=== PATIENT | male | born 1975 | race Caucasian/White ===

== ENCOUNTER 2024-05-26 08:37 | Observation (INO) ==
--- NOTE | 2024-04-21 15:05 | PAT Medication Instructions ---
Medication Instructions Date of Service April 21, 2024 Home Medications lisinopril 10 mg tablet 10 mg PO QAM ibuprofen 400 mg tablet 400 mg PO QAM omeprazole 40 mg capsule,delayed release 40 mg PO DAILY Continue as directed omeprazole 40 mg capsule,delayed release 40 mg PO DAILY ASK your surgeon for instructions ibuprofen 400 mg tablet 400 mg PO QAM DO NOT take the morning of surgery lisinopril 10 mg tablet 10 mg PO QAM Other Notes NOTHING TO EAT OR DRINK AFTER MIDNIGHT. If you have any questions please call us at [phone] or [phone] or [phone] or [phone]
--- NOTE | 2024-04-27 08:14 | Anesthesiology Consultation ---
Date of Service April 27, 2024 Assessment & Plan (1) Encounter for pre-operative examination: Plan - PAT testing to be faxed to PCP (Dr. Resendiz) per patient request for continuity of care. - Outpatient joint assessment: Patient is currently scheduled for inpatient pathway. If re-evaluated and patient/surgeon requests outpatient pathway, patient is not advised candidate for outpatient joint program from anesthesia standpoint. Chart Review Chart Review: Acceptable Risk for Surgery and Patient seen in Pre Admission Testing Teaching & Discussion Pre-Anesthesia Teaching/Discussion Notes: Instructed NPO after midnight before surgery, except medications with 15 cc of water. Medication instructions provided according to the PAT guidelines. History Surgery Operation Date: 05/26/24 08:50 Proposed Procedures p Right Total Knee Arthroplasty - Levy Arroyo MD Height/Weight Height: 6 ft Weight: 158.2 kg Allergies Allergy/AdvReac Type Severity Reaction Status Date / Time No Known Allergies Allergy Verified 04/21/24 07:31 Medications Home Medications Medication Instructions Recorded Confirmed Last Taken lisinopril 10 mg tablet 10 mg PO QAM 08/19/19 04/21/24 Unknown ibuprofen 400 mg tablet 400 mg PO QAM 04/21/24 04/21/24 Unknown omeprazole 40 mg capsule,delayed 40 mg PO DAILY 04/21/24 04/21/24 Unknown release Past Medical History Medical History (Updated 04/27/24 @ 08:31 by Pamella Robert PA-C) Borderline hyperlipidemia no meds DJD (degenerative joint disease) of knee Fatty liver GERD (gastroesophageal reflux disease) controlled, stable per pt History of COVID-19 (2020) no hosp; resolved History of unintended awareness under general anesthesia patient notes that he was talking with provider before colonoscopy began after endoscopy and they advised him they needed to administer additional medication Hypertension controlled, stable per pt Knee pain, bilateral to receive cortisone injection in left knee on 05/11/24 Sleep apnea CPAP-compliant Patient denies h/o stroke, seizures, heart attack, heart failure, DM, blood clots/DVTs or blood transfusions. Exercise / Class Metabolic Activity II 4-5 Yardwork/Stairs/Walk up hill (denies chest discomfort or shortness of breath with one flight of stairs) Past Family History Family History Other No family history of adverse response to anesthesia Past Surgical History Surgical History History of esophagogastroduodenoscopy (EGD) Hx of arthroscopic knee surgery left Hx of colonoscopy Past Anesthesia History No Family Hx of Anesthesia Complications History of PONV No Hx of PONV and No Hx of Motion Sickness Social History Smoking Status: Former smoker Do You Dip or Chew Tobacco: No Smoking End Date: quit 2009 Hx Alcohol Use: Yes (once per month) alcohol intake frequency: other Hx Substance Use: No substance use type: does not use Review of Systems Patient denies chest pain, shortness of breath, dyspnea on exertion, fever, chills, cough, wheezing, or palpitations. Physical Exam Vital Signs Vitals BP 127/85 P 71 TEMP 98.0 SP02 97% on RA RESP 18 Physical Patient resting comfortably in chair in no acute distress, alert and oriented, responding appropriately throughout visit Full cervical extension range of motion without pain TMD 3.5 finger breadths Mallampati Score 3 Dentition: intact, denies chipped or loose teeth, caps/crowns, implants or bridges Lungs: normal respiratory effort. Good air movement, clear throughout to auscultation, no adventitious breath sounds Cardiac: regular rate and rhythm, no murmurs noted Carotid arteries: negative bruit bilat Lab Results Anesthesia Preop Results Results Anesthesia Widget: WBC 5.08 K/ul (4.8-10.8) 04/27/24 Hgb 15.0 g/dl (14.0-18.0) 04/27/24 Hct 43.6 % (42.0-52.0) 04/27/24 Plt 203 K/uL (130-400) 04/27/24 Na 139 mmol/L (136-145) 04/27/24 K 4.2 mmol/L (3.5-5.1) 04/27/24 Cl 104 mmol/L (98-107) 04/27/24 CO2 29 mmol/L (21-32) 04/27/24 BUN 11 mg/dl (6-23) 04/27/24 Creat 0.95 mg/dl (0.6-1.4) 04/27/24 Glucose Level 111 mg/dl (70-99(Fasting)) H 04/27/24 PT 11.2 Seconds (9.0-12.0) 04/27/24 PTT 27 Seconds (21-31) 04/27/24 INR 1.0 (0.9-1.1) 04/27/24 Blood Type A Positive 04/27/24 Antibody Screen NEGATIVE 04/27/24 Testing Electrocardiogram Date: 04/27/24 NSR, rate 66 bpm Chest X-Ray Date: 04/27/24 No evidence of acute cardiopulmonary disease, communicable disease or tuberculosis.
--- NOTE | 2024-05-19 11:47 | History & Physical Report ---
Date of Service May 19, 2024 Assessment & Plan (1) Right knee DJD: 48-year-old fairly large gentleman with multiple medical comorbidities with advanced bilateral knee DJD. The right side is more symptomatic than the left. Is failed conservative treatment. He would like to proceed with knee replacement. Plan: We are going to take him to the operating room and do a right total knee replacement. The risks and benefits of this procedure were explained. He knows that his young age this might need to be redone or revised in the future. Will likely put a stem in the tibia due to his large size. He is planning to be discharged to home with some home health. Will use aspirin for DVT prophylaxis. (2) Left knee DJD: (3) Hx of arthroscopy of knee: (4) High blood pressure: (5) Obesity: (6) Hypertension: (7) Borderline hyperlipidemia: (8) GERD (gastroesophageal reflux disease): History of Present Illness Chief Complaint: . Bilateral knee pain and discomfort right side greater than the left. Primary Care Provider: Harper Resendiz . Patient is a 48-year-old gentleman who referred by Dr. Dalton for treatment of his knees. Got a long history of knee problems dating back to many years ago. He had his left knee scope back in the s. He does not remember who did this. Over the years he developed increased pain and discomfort in both knees. The right much knee bothers him more than the left at this point. He has had injections which have become less successful over time. Pains become more debilitating. He has difficulty even walking it sometimes. He would like to proceed with knee replacement. Allergies Allergy/AdvReac Type Severity Reaction Status Date / Time No Known Allergies Allergy Verified 05/11/24 12:59 Home Medications Medication Instructions Recorded Confirmed Type lisinopril 10 mg tablet 10 mg PO QAM 08/19/19 05/11/24 History acetaminophen 500 mg oral powder 500 mg PO Q6H PRN 05/11/24 05/11/24 History packet (Tylenol Extra Strength) Past Med/Surg History Problem List (Updated 05/19/24 @ 11:45 by Levy Arroyo MD) Obesity Encounter for pre-operative examination Left knee DJD Right knee DJD Knee pain, bilateral Hx of arthroscopy of knee High blood pressure Medical History History of unintended awareness under general anesthesia patient notes that he was talking with provider before colonoscopy began after endoscopy and they advised him they needed to administer additional m edication Hypertension controlled, stable per pt DJD (degenerative joint disease) of knee Knee pain, bilateral to receive cortisone injection in left knee on 05/11/24 History of COVID-19 (2020) no hosp; resolved Fatty liver Borderline hyperlipidemia no meds Sleep apnea CPAP-compliant GERD (gastroesophageal reflux disease) controlled, stable per pt Surgical History History of esophagogastroduodenoscopy (EGD) Hx of colonoscopy Hx of arthroscopic knee surgery left Family History Other No family history of adverse response to anesthesia Social History Smoking Status: Former smoker Tobacco Type: Cigarettes Second Hand Exposure: No; Do You Dip or Chew Tobacco: No; Hx Alcohol Use: Yes (once per month) Hx Substance Use: No Preferred Language: Citizen Of [place] Communication Ability: Effective Sign Poster Required: No Beliefs That Will Affect Care: None Current Living Situation: Spouse Feels Safe at Home: Yes Assistive Devices: CPAP Review of Systems All systems reviewed & are unremarkable except as noted in HPI & below. Physical Exam . Physical examination reveals a fairly large middle-age male. Looks be in reasonably good health. Examination both knees reveals patient walks with a bit of a waddling gait. Examination of the right knee reveals varus alignment to his knee. Is got bony prophy. Range of motion is about 10 degrees short of full extension to about 100 to 105 degrees of flexion. Pretty stiff in flexion. No pain with hip motion. Examination left knee reveals fairly neutral slight varus alignment. Tenderness medially. Small knee effusion. Range of motion is 10-95. This knee is a little bit stiffer. No particular pain with hip motion. Constitutional WD/WN, vitals as above Neck trachea midline, no thyromegaly Respiratory normal respiratory effort, lungs clear to auscultation Cardiovascular RRR, no murmur, no edema Gastrointestinal (Abdomen) normal bowel sounds, soft, nontender, no hepatosplenomegaly Results & Data Results & Data Laboratory Results . Diagnostic Findings . X-rays of the right knee were reviewed. Shows advanced bilateral knee DJD. He is got severe advanced tricompartment disease. The left knee is actually little bit worse on x-ray than the right. Both knees show severe advanced tricompartment disease. PG Care Time/CCT Total # of Minutes Spent Total Time Spent with Patient: Total time spent is greater than 50% in coordination of care (as documented) at patient's floor/unit and/or counseling patient: Coding Level of Care Code None Diagnoses Right knee DJD M17.11 Left knee DJD M17.12 Hx of arthroscopy of knee Z98.890 High blood pressure I10 Obesity E66.9 Borderline hyperlipidemia E78.5 GERD (gastroesophageal reflux disease) K21.9
[~2024-05-26 08:37] MED LIST: LR 500ML BOLUS, THEN 15ML/HR IV SCH; LR 60ML/HR IV SCH; ROPIVACAINE 0.5% 5 MG/ML 30 ML VIAL ONE
[2024-05-26] MEDS: SODIUM CHLORIDE 0.9% 1,000 ML IV SCH (09:25)
[2024-05-26] MEDS: METOCLOPRAMIDE HCL 10 MG TABLET PO SCH (09:26)
[2024-05-26] MEDS: ACETAMINOPHEN 500 MG TAB PO SCH ×2 (09:26→15:59)
[2024-05-26] MEDS: FAMOTIDINE 20 MG TAB PO SCH (09:26)
[2024-05-26] MEDS: CeleBREX 200 MG CAP PO SCH (09:26)
[2024-05-26] MEDS ORDERED: PROPOFOL IV EMULSION 10 MG/ML 20 ML VIAL IV ONE ×3 (09:32→12:53)
[2024-05-26] MEDS ORDERED: LIDOCAINE 2% 2 ML VIAL/AMP(20MG/ML) INFIL ONE (09:32)
[2024-05-26] MEDS ORDERED: HYDROmorphone INJ 1 MG/ML SYRINGE IV PRN (09:41)
[2024-05-26] MEDS ORDERED: ePHEDrine sulfate 50 MG/ML AMP IV PRN (09:41)
[2024-05-26] MEDS ORDERED: ATROPINE SULFATE 0.1 MG/ML 10ML SYR IV PRN (09:41)
[2024-05-26] MEDS ORDERED: ONDANSETRON INJ 2 MG/ML 2 ML VIAL IV PRN ×2 (09:41→15:37)
[2024-05-26] MEDS ORDERED: fentaNYL citrate PF 100 MCG/2 ML VIAL IV PRN (09:41)
[2024-05-26] MEDS ORDERED: MIDAZOLAM HCL 1 MG/ML 2ML VIAL ONE (09:46)
[2024-05-26] MEDS ORDERED: KETAMINE HCL 10MG/ML SYR ONE (09:46)
[2024-05-26] MEDS ORDERED: fentaNYL citrate PF 100 MCG/2 ML VIAL ONE (09:46)
--- NOTE | 2024-05-26 10:37 | History & Physical Bridge Note ---
Date of Service May 26, 2024 History & Physical Bridge Note I have examined the patient, reviewed the History & Physical and in the interval since the performance of the History & Physical I have noted the following changes of clinical significance: no changes noted
[2024-05-26] MEDS: ceFAZolin 3000MG 3,000 MG/72.5 ML BAG IV SCH (11:03)
[2024-05-26] MEDS: ROPIV 0.5% 246mg, Ketorolac 30mg, EPINEPHrine 0.5mg in NSS INFIL SCH (11:33)
[2024-05-26] MEDS: ORTHO JOINT ANESTHETIC ONE (11:33)
[2024-05-26] MEDS: TRANEXAMIC ACID 1,000 MG **IV Intra-op IV SCH (12:17)
--- NOTE | 2024-05-26 13:13 | Operative Report ---
PG Post Operative Report Pre & Post Diagnosis Operation Date: 05/26/24 10:40 Pre-Op Diagnosis: Right Knee Degenerative Joint Disease Post-Op Diagnosis: Right Knee Degenerative Joint Disease I identified the patient and participated in the time-out.: Yes Procedure Operation Date: 05/26/24 10:40 Actual Procedures p Right Total Knee Arthroplasty(Right) - Levy Arroyo MD Surgeon Levy Arroyo MD Tax Preparer Aravind Morrow PA-C Estimated Blood Loss 100 Findings Consistent with Post-Op Diagnosis Operative findings were advanced right knee tricompartment DJD. He had asked pretty extensive grade 4 [id number] disease in all 3 compartments. Fairly large gentleman with a large soft tissue envelope. Very stiff knee. Specimens Right knee sent for pathology. Anesthesia Type Spinal MAC Complications none Disposition Accompanied Patient To Recovery: No Indications Patient is a 48-year-old very large gentleman whose had a several year history of increasing bilateral knee pain discomfort described to gotten worse over time. Is been through extensive conservative treatment which became less successful over time. X-rays show advanced bilateral knee DJD. The right knee was bothering more than the left and he elected proceed with right total knee arthroplasty. Description of Procedure Operative implants consist of: 1 Biomet Vanguard size 70 right posterior stabilized femoral component. 2. Biomet size 79 tibial tray with a 16 x 80 mm offset stem with a 5 mm offset and a small cruciate wing. 3. 10 mm post stabilized polyethylene insert. 4. 34 x 8 and half all poly patella. The patient was taken the operating, identified, placed on the operative table in the supine position. All contact areas were appropriately padded. IV antibiotics fibra anesthesia team. A spinal anesthetic and adductor canal block had been Weida in the holding area. A right side turn was then placed. The right lower extremity was then prepped and draped in usual sterile fashion. The right leg was elevated and exsanguinated with use of an Esmarch and the tourniquet was placed at 350 mmHg. An anterior approach to the right knee was then formed to longitudinal incision centered over the patella. Sharp dissection was Through subcutaneous tissue down the extensor mechanism. A medial parapatellar arthrotomy incision was made. Some subperiosteal dissection was carried out medially. The fat pad was dissected from Neath patella tendon. Lateral patellofemoral ligament was released. The patella was subluxated laterally and the knee was flexed. The osteophytes taken on distal femur. The ACL and PCL were then released from distal femur and the tibia subluxated anteriorly. Attention was then drawn to the tibia. The intercondylar eminence was resected with a saw. The IM canal was entered we reamed up to a size 16. The 16 reamer was left in place and the tibial cutting guide was placed on the IM reamer and used to cut the proximal tibia take 2 mm from the most efficient aspect medial tibial plateau. The tibia was then sized to a size 79. We then elected to use a 5 mm offset stem. The tibial tray was pinned in place and the proximal tibia was prepared for small cruciate wing and a 5 mm offset 16mm stem. Attention drawn the femur. The distal femur was entered with a sharp drill. Intramedullary canal was suction. A right 6 degree valgus cutting guide was placed per the distal femoral cutting block was pinned in place. This femoral cut was made to take an additional 3 mm of bone off distal femur. The femur was then sized to a size 70. The AP cutting block was pinned parallel to the epicondylar axis which was 4 degrees of external rotation. The anterior cut, anterior chamfer, posterior cut, posterior chamfer cuts were made. The box cutting guide was placed and just slight lateral box cut was made. The knee was flexed. The remnants of the medial and lateral menisci were excised. The osteophytes taken off the posterior aspect the femur. A trial femoral component was placed. We then trialed the knee and the 10 mm insert fit most appropriately. Attention drawn the patella. The patella is cleaned of all soft tissue. Patella thickness measured 25 mm and was cut down to 15. Was sized to a size 34 patella. The lug holes were drilled for 34 patella. The lateral osteophyte was removed. The patella button was p laced. Knee was taken through range of motion patella tracked nicely with no thumbs test. Attention was then drawn toward placing permanent components. Nupathe all trial components were removed. Bone plug was placed into this femur limit blood loss. Double batch Palacos G cement was mixed. A Biomet [employer] size 70 right posterior Byce femoral component, size 79 tibial tray with a 16 x 80 mm offset stem and a small cruciate wing was placed followed by a 10 mm posterior Byce polyethylene insert and a 34 x 8 and half all poly patella. The knee was brought out into full extension till cement hardened. A final cement check was then performed. The pericapsular tissues were injected with a total of 100 cc of Ortho mix. The patient did receive 1 g tranexamic acid. The tourniquet was then let down for final tourniquet time of 78 minutes. Hemostasis assured with electrocautery. Extensor Meclomen closed with combination 1 PDS suture #1 Vicryl suture in a [id number] fashion. Ex tensor Meclomen checked found to be intact. Subcutaneous tissues then closed with 2 Dexon suture in a buried interrupted fashion skin was closed skin chip. Leg was then cleaned and dried a sterile dressing with Xeroform, 4 fours, sterile cast padding, Celestine bandage were applied. The patient was then transferred to the recovery room in stable condition. The patient tolerated the procedure well and there were no complications. Aravind Morrow, my physician therapist's assistant, was present for the entire procedure. His assistance was essential and required for appropriate patient positioning, prepping and draping, surgical exposure, performing the technical details of the operation, placement the implants, closure of the wound, and placement of the sterile bandage. I attest to the content of the Intraoperative Record and any orders documented therein. Any exceptions are noted below.
--- NOTE | 2024-05-26 13:36 | Anesthesiology Progress Note ---
Date of Service May 26, 2024 Anesthesia Post Procedure Vital Signs Vital Signs: Temp Pulse Resp BP Pulse Ox O2 Del Method 05/26/24 13:25 71 16 148/82 H 95 Room Air 05/26/24 13:15 82 14 128/79 96 Room Air 05/26/24 13:07 36.3 C L 87 20 143/82 H 95 Room Air 05/26/24 09:01 37.1 C 79 20 146/93 H 96 Room Air Transfer of Care Handoff Completed per policy Notes Mental Status: alert / awake / arousable and participated in evaluation Patient Amnestic to Procedure: Yes Nausea / Vomiting: adequately controlled Pain: adequately controlled Airway Patency, RR, SpO2: stable & adequate BP & HR: stable & adequate Hydration State: stable & adequate Neuraxial Anesthesia: was administered and sensory block is resolving Anesthetic Complications: no major complications apparent and Pt Satisfied with anesthetic care
--- NOTE | 2024-05-26 13:49 | XRay Report ---
XR knee RT 1 or 2V routine HISTORY: 48 years-old Male Surgical Post Op COMPARISON: 02/10/2024 TECHNIQUE: 2 views of the right knee FINDINGS: Total joint arthroplasty with patellar resurfacing. Anterior midline skin chip with expected posto perative soft tissue swelling and deep tissue air. No acute fracture or unexpected opaque foreign bod y. IMPRESSION: Total joint arthroplasty with expected postoperative changes. ACT 112: Negative or not required by law. The above report was generated using voice recognition software. It may contain grammatical, syntax o r spelling errors. Electronically signed by: Keith Qureshi M.D. 05/26/2024 1:48 PM
[2024-05-26] MEDS ORDERED: diphenhydrAMINE Capsule 25 MG CAP PO PRN (15:37)
[2024-05-26] MEDS ORDERED: METOCLOPRAMIDE HCL INJ 5 MG/ML 2 ML VIAL IV PRN (15:37)
[2024-05-26] MEDS ORDERED: TAMSULOSIN HCL 0.4 MG CAP PO PRN (15:37)
[2024-05-26] MEDS ORDERED: MAGNESIUM HYDROXIDE SUSP 30 ML UDC PO PRN (15:37)
[2024-05-26] MEDS ORDERED: bisacodyL 10 MG SUPP PR PRN (15:37)
[2024-05-26] MEDS ORDERED: HYDROmorphone INJ 0.5 MG/0.5 ML SYR IV PRN (15:37)
[2024-05-26] MEDS ORDERED: ALUMINUM/MAGNESIUM SUSP 30 ML UDC PO PRN (15:37)
[2024-05-26] MEDS ORDERED: NALOXONE HCL 0.4 MG/1 ML VIAL/CARP IV PRN (15:37)
[2024-05-26] MEDS: LR 500ML BOLUS, THEN 15ML/HR IV SCH (15:56)
[2024-05-26] MEDS: KETOROLAC 30 MG/ML VIAL IV SCH (16:39)
[2024-05-26] MEDS: ASCORBIC ACID 500 MG TAB PO SCH (16:44)
[2024-05-26] MEDS: ceFAZolin 2000MG 2,000 MG/15 ML SYR IV SCH (19:15)
[2024-05-26] MEDS: TRANEXAMIC ACID / 0.7% NACL 1,000 MG/100 ML BAG IV SCH (19:20)
[2024-05-26] MEDS: DOCUSATE SODIUM 100 MG CAP PO SCH (20:04)
[2024-05-26] MEDS: ASPIRIN 81 MG ECTAB PO SCH (20:05)
[2024-05-26] MEDS: SENNA 8.6 MG TAB PO SCH (20:05)
[2024-05-26] MEDS ORDERED: SENNA 8.6 MG TAB PO SCH (21:00)
[2024-05-27] MEDS: oxyCODONE HCL IR 5 MG TAB (IMMEDIATE RELEASE) PO PRN (00:11)
[2024-05-27 06:20] LABS: Hematocrit (blood only) 38.5 % (42.0-52.0); Hemoglobin 12.7 g/dl (14.0-18.0); Mean Corpuscular Hemoglobin 27.5 pg (25.0-34.0); Mean Corpuscular Volume 83.5 fL (80.0-100.0); Mean Platelet Volume 10.3 fL (9.4-12.4); Platelet Count 198 K/uL (130-400); RDW Coefficient of Variation 13.1 % (11.5-14.5); RDW Standard Deviation 39.3 fL (36.4-46.3); Red Blood Count 4.61 M/uL (4.70-6.10); White Blood Count 11.31 K/ul (4.8-10.8)
[2024-05-27 06:51] LABS: BUN Creatinine Ratio 21.1 (10-20); Calcium 8.5 mg/dl (8.6-10.3); Creatinine Clr Calc Pharmacy 145.1 ml/min; Potassium 4.2 mmol/L (3.5-5.1)
--- NOTE | 2024-05-27 07:01 | Orthopedic Progress Note ---
Date of Service May 27, 2024 Assessment & Plan (1) Status post total right knee replacement: Pod 1 from right tka. Continue current pain control dvt prophylaxis: teds, scd's, aspirin PT/OT wbat d/c planning: home with home health today if therapy goes well. will discuss with Dr Cruz Ace .48 year old patient POD 1 from right tka. Doing fairly well. Had some moderate pain around midnight, relieved with pain medicine. No other complaints. Review of Systems All systems reviewed & are unremarkable except as noted in HPI & below. Physical Exam .alert and oriented. NAD VSS hgb 12.7 rigth leg: dressing clean, dry, and intact. Unable to do straight leg raise. Able to flex/extend knee. Able to DF/PF. NVI Results & Data Results & Data Laboratory Results . Diagnostic Findings . PG Care Time/CCT Total # of Minutes Spent Total Time Spent with Patient: Total time spent is greater than 50% in coordination of care (as documented) at patient's floor/unit and/or counseling patient: Coding Level of Care Code 93436 Post Operative Follow-Up Diagnoses Status post total right knee replacement Z96.651
[2024-05-27 07:16] VITALS: BP 131/83; PULSE 72; RESP 17; TEMP 98.4; O2SAT 95
[2024-05-27] MEDS: lisinopril 10 MG TAB PO SCH (07:47)
[2024-05-27] MEDS: MULTIVITAMIN TAB PO SCH (07:48)
[2024-05-27] MEDS: dexAMETHasone 10 MG in SYRINGE 0 ML IV SCH (09:04)
== END 2024-05-27 11:07 | disposition home health service (06) ==
LOC: 3E 08:37 → ASU 08:37